=== PATIENT | female | born 1940 | race Caucasian/White ===

== ENCOUNTER 2017-04-03 06:35 | Day surgery (SDC) | payer OTHER ==
[~2017-04-03 06:35] MED LIST: LISINOPRIL-HCT1 EACH PO; NORVASC5 MG PO; SYNTHROID88 MCG PO; TOPROL XL100 M1 PO; ZOCOR20 MG PO
== END 2017-04-03 19:05 | disposition home or self-care (01) ==
LOC: CIR.AMB 06:35
DX: D24.2 Benign neoplasm of left breast (principal)